=== PATIENT | male | born 1980 | race Caucasian/White ===

== ENCOUNTER 2017-06-27 23:43 | Emergency (ER) | payer OTHER ==
--- NOTE | 2017-06-27 23:55 | CPEKG ---
Heart Rate: 71 RR Interval: 845 P-R Interval: 172 QRSD Interval: 102 QT Interval: 404 QTC Interval: 439 P [place]: 50 QRS [place]: 65 T Wave [place]: 31 EKG Severity - BORDERLINE ECG - EKG Impression: SINUS RHYTHM EKG Impression: In significant Q-waves in 2, 3, and F Electronically Signed By: Isidoro Sofia 28-Jun-2017 00:56:23
[2017-06-27] MEDS ORDERED: ASPIRIN 81 MG CHEWABLE TAB PO ONE (23:59)
[2017-06-27] MEDS ORDERED: PANTOPRAZOLE SODIUM 40 MG VIAL IVP ONE (23:59)
[2017-06-28] MEDS ORDERED: ONDANSETRON 4 MG/2 ML VIAL IVP ONE
[2017-06-28] MEDS ORDERED: NS 1,000 ML IV ONE (00:01)
[2017-06-28 00:08] LABS: % IMMATURE GRANULYOCYTES 0.3 % (0.0-1.1); ABSOLUTE IMMATURE GRANULOCYTES 0.02 10^3/uL (0.00-0.10); ADD DIFF? NO; ADD MORPH? NO; ADD SCAN? NO; ATYPICAL LYMPHOCYTE FLAG 0 (0-99); FRAGMENT RBC FLAG 0 (0-99); HEMATOCRIT 42.6 % (40.0-51.0); HEMOGLOBIN 14.6 g/dL (13.7-17.5); LEFT SHIFT FLG 0 (0-99); LIPEMIA HEMOLYSIS FLAG 90 (0-99); MEAN CELL HEMOGLOBIN 29.9 pg (27.9-34.1); MEAN CELL HEMOGLOBIN CONCENTR. 34.3 g/dL (32.4-36.7); MEAN CELL VOLUME 87.3 fL (81.5-99.8); MEAN PLATELET VOLUME 8.8 fL (8.7-11.7); PLATELET CLUMPS FLAG 0 (0-99); PLATELET COUNT 385 10^3/uL (150-400); RED BLOOD CELL COUNT 4.88 10^6/uL (4.40-6.38); RED CELL DISTRIBUTION WIDTH 12.5 % (11.5-15.2)
[2017-06-28 00:20] LABS: ALANINE AMINOTRANSFERASE 32 IU/L (21-72); ALBUMIN 3.9 g/dL (3.5-5.0); ALKALINE PHOSPHATASE 94 IU/L (38-126); ANION GAP 15 mEq/L (8-16); ASPARTATE AMINOTRANSFERASE 23 IU/L (17-59); BILIRUBIN,TOTAL 0.2 mg/dL (0.1-1.4); BILIRUBIN-UNCONJUGATED 0.2 mg/dL (0.0-1.1); CALCIUM 9.6 mg/dL (8.5-10.4); CARBON DIOXIDE 28 mEq/l (22-31); CHLORIDE 102 mEq/L (97-110); CREATININE 0.9 mg/dL (0.7-1.3); GLOMERULAR FILTRATION RATE > 60; GLUCOSE 104 mg/dL (70-100); POTASSIUM 4.3 mEq/L (3.5-5.2); SODIUM 145 mEq/L (134-144); TOTAL PROTEIN 6.9 g/dL (6.3-8.2)
[2017-06-28 00:34] LABS: TROPONIN I < 0.012 ng/mL (0.000-0.034)
--- NOTE | 2017-06-28 01:16 | EDPHY ---
H & P Stated Complaint: epigastric aand chest pain Time Seen by Provider: 06/27/17 23:45 HPI/ROS: CHIEF COMPLAINT: Upper abdominal pain HISTORY OF PRESENT ILLNESS: This is a 37-year-old gentleman who carries little extra weight. This is his 3rd episode of lower chest/upper abdominal distress. This particular episode is lasting at this 5 hr since onset at 1900 hr wears the other 2 episodes lasted only to 3 hr. Further, this episode is centered strictly in the hypogastrium in epigastrium wears previously went across the bilateral upper abdomen. Of note it does not go to the chest. This particular episode does not have any mid back component to it wears either to have had such. He was fine until around 7:00 p.m. when he was eating some pizza and noted this lower chest discomfort which has persisted in the epigastrium. There is no component into the back. It is a burning type quality and does not radiate to the chest or back, this time. He did vomit x1, spontaneous, which was not bloody. The pain itself peak did 8/10 in is an 8/10 at this time. It is localized, does not radiate, and did not respond waiting it out over several hours as it has in the past. Weight loss: Approximately 2 and half years ago he went on a self imposed diet and exercise regimen during which the subsequent 18 months he lost 115 lb. He got all the way down to 205. He has since gained some weight back. Cardiac Risk Factors: DM: No HTN: yes High Chol: yes Smoking: Smoked for 10 years Family History: No Obesity: yes SLE type illenss: No HIV: No PE/DVT risk factors Prior DVT/PE: No Immobilization: No Splint/Cast: No Surgery, recently: No Family history of hypercoaguable syndrome: No Unilateral leg swelling: No Obesity: yes Hypertension yes Known Aortic aneurysm No - Bicuspid aortic Valve No Aortic Valve disease No Family Hx of aortic dieseae yes = grandmother had an aneurysm of though unknown if it was abdominal or thoracic Polycystic Kidney Disease No Collagen vascular disease No Aortic Regurg Murmur no REVIEW OF SYSTEMS: Constitutional: No fever, no chills. Eyes: No discharge ENT: No sore throat. Cardiovascular: No chest pain, no palpitations. Respiratory: No cough, shortness of breath, or wheezing. Gastrointestinal: See above Genitourinary: No hematuria or frequency. Musculoskeletal: No back pain. Skin: No rashes. Neurological: No headache. 10 point ROS otherwise negative Source: Patient Exam Limitations: No limitations - Personal History Current Tetanus/Diphtheria Vaccine: Yes Current Tetanus Diphtheria and Acellular Pertussis (TDAP): Yes - Medical/Surgical History Hx Asthma: No Hx Chronic Respiratory Disease: No Hx Diabetes: No Hx Cardiac Disease: No Hx Renal Disease: No Hx Cirrhosis: No Hx Alcoholism: No Hx HIV/AIDS: No Hx Splenectomy or Spleen Trauma: No Other PMH: htn, psoriasis - Family History Significant Family History: No pertinent family hx - Social History Smoking Status: Former smoker Alcohol Use: None Drug Use: None - Physical Exam Exam: General Appearance: Alert, no distress. Afebrile. Normal phonation. No respiratory distress. Skin is warm and dry Eyes: Pupils equal and round no pallor or injection. No icterus ENT, Mouth: Mucous membranes moist Pharynx without erythema or exudate. TM Clear. Neck: No adenopathy. Supple. No JVD. Trachea in midline. Respiratory: There are no retractions, lungs are clear to auscultation. Chest wall: Nontender to palpation. No crepitus. Cardiovascular: Regular rate and rhythm. Abdomen: Soft, mildly tender in the hypogastrium in epigastrium. No masses, bowel sounds normal. No rebound or gaurding. Femoral pulses equal. Neurological: Ox3. No motor weakness. Sensation intact. Gait nl. Skin: Warm and dry, no rashes. Musculoskeletal: No joint swelling. Extremities: No edema. Homans sign negative. No cords. Psychiatric: Normal affect. Patient is oriented X 3. There is no agitation Constitutional: Initial Vital Signs Heart Rate 68 06/27/17 23:45 Respiratory Rate 18 06/27/17 23:45 Blood Pressure 171/101 H 06/27/17 23:45 O2 Sat (%) 99 06/27/17 23:45 O2 Delivery Mode Room Air Allergies/Adverse Reactions: No Known Allergies Allergy (Unverified 03/10/13 10:03) Home Medications: Medication Instructions Recorded Omeprazole 40 mg PO DAILY #14 capsule. 06/28/17 Medical Decision Making - Diagnostics EKG Interpretation: EKG: Interpreted by me contemporaneously. Rhythm: Normal sinus rhythm. Heart rate 71 QTc 439 QRS: normal ache significant Q-waves in 2, 3 and F STT segment: normal T Waves: Normal Q waves none Summary: Normal Ekg Sec EKG. Interpreted by me contemporaneously. Sinus rhythm. Heart rate of 70. Unchanged from before. No ischemic changes are noted. Coving in V4 through V6 as before Imaging Results: Chest x-ray: Two view chest. Interpreted by me, contemporaneously. Films viewed by me on the PACS system. Normal mediastinum. Normal lung rodgers. No effusions. Normal chest. ED Course/Re-evaluation: [id number]. Laboratories to this point are negative. This includes: A 5 hr troponin Negative lipase Negative LFTs Negative WBC. He reports a 1 point drop in his pain scale from 8-7 after the p.o. GI cocktail. IV pantoprazole is pending. I made attempts to localize the gallbladder using ultrasound, but I was unable to find it. Perhaps this is he due to the fact that he has 5 hr postprandial 0130 - no better. will check 2nd EKG and add Bentyl. 0220 - Feels not better, though has less epigastirc tenderness than before. He declines narcotics for relief at this time. Wants to wait till results of [address], so will: - add Pepcid - repeat GI Cocktail - initiate CT of abd/pelvis Approximately 15 min later the nurse informed me as she gave him the additional medications (Pepcid and GI Coctail #2) as he was feeling better, he wanted to avoid the CT for mow. Ultimately Trop #2 remained undetectable. When checked at 0345, he stated he felt much better. We reviewed indications for a return as well as need for follow up visit. Role of Priolsec. Reflux precautions. As well as need to return this am if sx did not remain markedly improved. Differential Diagnosis: Differential diagnosis includes but is not limited to the following: ACS, myocardial infarction, pneumothorax, pleurisy, pulmonary embolus, CHF, Pneumonia, bronchospasm, anxiety, muscle strain, hepatitis, pancreatitis, cholecystitis, gastritis, mesenteric adenitis, food poisoning. - Data Points Laboratory Results: Laboratory Results 06/28/17 00:05 06/28/17 00:05 06/28/17 06/28/17 06/28/17 03:02 00:05 00:05 WBC 7.16 10^3/uL 10^3/uL (3.80-9.50) RBC 4.88 10^6/uL 10^6/uL (4.40-6.38) Hgb 14.6 g/dL g/dL (13.7-17.5) Hct 42.6 % % (40.0-51.0) MCV 87.3 fL fL (81.5-99.8) MCH 29.9 pg pg (27.9-34.1) MCHC 34.3 g/dL g/dL (32.4-36.7) RDW 12.5 % % (11.5-15.2) Plt Count 385 10^3/uL 10^3/uL (150-400) MPV 8.8 fL fL (8.7-11.7) Neut % (Auto) 42.6 % % (39.3-74.2) Lymph % (Auto) 46.5 % H % (15.0-45.0) [place] % (Auto) 7.3 % % (4.5-13.0) Eos % (Auto) 2.7 % % (0.6-7.6) Baso % (Auto) 0.6 % % (0.3-1.7) Nucleat RBC Rel Count 0.0 % % (0.0-0.2) Absolute Neuts (auto) 3.06 10^3/uL 10^3/uL (1.70-6.50) Absolute Lymphs (auto) 3.33 10^3/uL H 10^3/uL (1.00-3.00) Absolute Monos (auto) 0.52 10^3/uL 10^3/uL (0.30-0.80) Absolute Eos (auto) 0.19 10^3/uL 10^3/uL (0.03-0.40) Absolute Basos (auto) 0.04 10^3/uL 10^3/uL (0.02-0.10) Absolute Nucleated RBC 0.00 10^3/uL 10^3/uL (0-0.01) Immature Gran % 0.3 % % (0.0-1.1) Immature Gran # 0.02 10^3/uL 10^3/uL (0.00-0.10) Sodium 145 mEq/L H mEq/L (134-144) Potassium 4.3 mEq/L mEq/L (3.5-5.2) Chloride 102 mEq/L mEq/L (97-110) Carbon Dioxide 28 mEq/l mEq/l (22-31) Anion Gap 15 mEq/L mEq/L (8-16) BUN 19 mg/dL mg/dL (7-23) Creatinine 0.9 mg/dL mg/dL (0.7-1.3) Estimated GFR > 60 Glucose 104 mg/dL H mg/dL (70-100) Calcium 9.6 mg/dL mg/dL (8.5-10.4) Total Bilirubin 0.2 mg/dL mg/dL (0.1-1.4) Conjugated Bilirubin 0.0 mg/dL mg/dL (0.0-0.5) Unconjugated Bilirubin 0.2 mg/dL mg/dL (0.0-1.1) AST 23 IU/L IU/L (17-59) ALT 32 IU/L IU/L (21-72) Alkaline Phosphatase 94 IU/L IU/L (38-126) Troponin I < 0.012 ng/mL ng/mL < 0.012 ng/mL ng/mL (0.000-0.034) (0.000-0.034) Total Protein 6.9 g/dL g/dL (6.3-8.2) Albumin 3.9 g/dL g/dL (3.5-5.0) Lipase 96 IU/L IU/L (23-300) Medications Given: Discontinued Medications Al Hydroxide/Mg Hydroxide (Maalox Susp) 30 ml PO ONCE ONE Stop: 06/28/17 00:01 Last Admin: 06/28/17 00:11 Dose: 30 ml Al Hydroxide/Mg Hydroxide (Maalox Susp) 30 ml PO ONCE ONE Stop: 06/28/17 02:24 Last Admin: 06/28/17 02:29 Dose: 30 ml Aspirin (Aspirin) 324 mg PO EDNOW ONE Stop: 06/28/17 00:00 Last Admin: 06/28/17 00:08 Dose: 324 mg Dicyclomine HCl (Bentyl) 20 mg PO EDNOW ONE Stop: 06/28/17 01:31 Last Admin: 12/09/17 01:34 Dose: 20 mg Famotidine (Pepcid) 20 mg PO EDNOW ONE Stop: 06/28/17 02:25 Last Admin: 06/28/17 02:27 Dose: 20 mg Sodium Chloride (Ns) 1,000 mls @ 0 mls/hr IV EDNOW ONE; Wide Open PRN Reason: Protocol Stop: 06/28/17 00:02 Last Admin: 06/28/17 00:09 Dose: 1,000 mls Lidocaine (Lidocaine 2% Viscous) 15 ml PO ONCE ONE Stop: 06/28/17 00:01 Last Admin: 06/28/17 00:11 Dose: 15 ml Lidocaine (Lidocaine 2% Viscous) 15 ml PO ONCE ONE Stop: 06/28/17 02:24 Last Admin: 06/28/17 02:29 Dose: 15 ml Ondansetron HCl (Zofran) 4 mg IVP EDNOW ONE Stop: 06/28/17 00:01 Last Admin: 06/28/17 00:11 Dose: 4 mg Pantoprazole Sodium (Protonix) 40 mg IVP EDNOW ONE Stop: 06/28/17 00:00 Last Admin: 06/28/17 00:11 Dose: 40 mg Departure - Departure Disposition: Home, Routine, Self-Care Clinical Impression: Gastritis Qualifiers: Gastritis type: unspecified gastritis Chronicity: acute Gastritis bleeding: without bleeding Qualified Code(s): K29.00 - Acute gastritis without bleeding Acid reflux Qualifiers: Esophagitis presence: with esophagitis Qualified Code(s): K21.0 - Gastro- esophageal reflux disease with esophagitis Condition: Good Instructions: Omeprazole (By mouth), Gastritis (ED), Gastroesophageal Reflux Disease (ED), Esophageal Spasm (ED) Additional Instructions: Reflux Precautions as follows: - Do not make your evening meal the larger one for the day - nothing to eat 4 hours before bed - sleep propped up, several pillows work well - minimize caffeine such as coffee and chocolate. PRILOSEC 40 mg daily for two weeks. Next dose is today, best taken on an empty stomach. Return if you feel worse this morning. While this is unlikely to occurr, the medications will be wearing off. See your family doctor for further evaluation, this week. Referrals: Patient,NotPresent [Primary Care Provider] - As per Instructions Keiry Lucas MD [Medical Doctor] - As per Instructions Stand Alone Forms: Work Excuse Prescriptions: Omeprazole 40 mg PO DAILY #14 capsule.
[2017-06-28] MEDS ORDERED: DICYCLOMINE 10 MG CAP PO ONE (01:30)
[2017-06-28] MEDS ORDERED: DICYCLOMINE 10 MG CAP ONE (01:31)
--- NOTE | 2017-06-28 01:36 | CPEKG ---
Heart Rate: 70 RR Interval: 857 P-R Interval: 192 QRSD Interval: 106 QT Interval: 416 QTC Interval: 449 P [place]: 64 QRS [place]: 71 T Wave [place]: 29 EKG Severity - NORMAL ECG - EKG Impression: SINUS RHYTHM EKG Impression: Unchanged from earlier EKG. Electronically Signed By: Isidoro Sofia 28-Jun-2017 07:00:28
[2017-06-28] MEDS ORDERED: LIDOCAINE 2% VISCOUS 15 ML UDCUP PO ONE ×2 (02:23)
[2017-06-28] MEDS ORDERED: MAG HYDROX/AL HYDROX/SIMETH 30 ML UDCUP PO ONE ×2 (02:23)
[2017-06-28] MEDS ORDERED: FAMOTIDINE 20 MG TAB PO ONE (02:24)
[2017-06-28 02:33] VITALS: PULSE 68
[2017-06-28 04:09] VITALS: TEMP 98.4
[2017-06-29 00:51] VITALS: BP 128/88; RESP 18; O2SAT 96
== END 2017-06-28 04:09 | disposition home or self-care (01) ==
LOC: CED 23:43
DX: K29.00 Acute gastritis without bleeding (principal); K21.0 Gastro-esophageal reflux disease with esophagitis; E86.9 Volume depletion, unspecified; I10 Essential (primary) hypertension; Z87.891 Personal history of nicotine dependence
CPT/HCPCS: 71020-PO; 80048-PO; 80076-PO; 83690-PO; 84484-PO; 85025-PO; 96374; J2405